=== PATIENT | male | born 1975 | race African-American/Black ===

== ENCOUNTER 2020-12-05 14:23 | Emergency (ER) | payer MEDICAID ==
[~2020-12-05] VITALS: Ht 177.8 cm; Wt 77.3 kg
[2020-12-05 14:32] VITALS: BP 130/72
[2020-12-05] MEDS ORDERED: SULFAMETHOX/TRIMETH DS 800-160 MG/TABLET PO ONE (15:00)
[2020-12-05] MEDS ORDERED: POVIDONE-IODINE 10% 15 ML SOLUTION UD TP ONE (15:00)
[2020-12-05] MEDS ORDERED: HYDROCODONE/ACETAMINOPHEN 5-325 MG TABLET PO ONE (15:00)
[2020-12-05] MEDS ORDERED: CEPHALEXIN MONOHYDRATE 500 MG CAPSULE PO ONE (15:00)
[2020-12-05] MEDS ORDERED: LIDOCAINE 1%/EPI 1:200,000/PF 10 ML VIAL ONE (15:01)
== END 2020-12-05 16:17 | disposition home or self-care (01) ==
LOC: EMS 14:29
DX: L02.415 Cutaneous abscess of right lower limb (principal)
CPT/HCPCS: 10060; 99284; J3490